=== PATIENT | female | born 1990 | race Caucasian/White ===

== ENCOUNTER 2016-11-24 17:08 | Emergency (ER) | payer OTHER ==
[2016-11-24 17:11] VITALS: BMI 19.8
[2016-11-24 17:17] VITALS: RESP 18
--- NOTE | 2016-11-24 17:37 | ED PDOC ---
Arrival/HPI - General Chief Complaint: Female Genitourinary Time Seen by Provider: 11/24/16 17:12 Historian: Patient - History of Present Illness Narrative History of Present Illness (Text): 11/24/16 17:32 26yr old female presents today with vaginal bleeding and lower abdominal cramping that started About 5 hours prior to arrival. Patient states she is 9 weeks . Patient is . Patient complaining of intermittent lower abdominal cramping/suprapubic cramping. She is complaining of vaginal spotting. Patient states it was initially a brownish discharge now it's a slightly red/ mucousy discharge. She denies urinary symptoms. Denies back pain. Denies fevers or chills. No other complaints Time/Duration: 4-6 hours Symptom Onset: Sudden Symptom Course: Intermittent Quality: Cramping Severity Level: 3 Past Medical History - Provider Review Nursing Documentation Reviewed: Yes - Travel History Have you recently traveled outside [place] w/in the past 3 mons?: No - Infectious Disease Hx of Infectious Diseases: None - Tetanus Immunization Tetanus Immunization: Unknown - Psychiatric Hx Substance Use: No - Anesthesia Hx Anesthesia: No Family/Social History - Physician Review Nursing Documentation Reviewed: Yes Family/Social History: Unknown Family HX Smoking Status: Never Smoked Hx Alcohol Use: No Hx Substance Use: No Allergies/Home Meds Allergies/Adverse Reactions: Allergies No Known Allergies Allergy (Verified 11/24/16 17:11) Home Medications: Home Meds Medication Instructions Recorded Confirmed Ergocalciferol (Vitamin D2) 1 tab PO DAILY 11/24/16 11/24/16 [Vitamin D] Vit No.126/Iron/Folic 1 tab PO DAILY 11/24/16 11/24/16 [Classic Tablet] Review of Systems - Review of Systems Constitutional: absent: Fatigue, Fevers Respiratory: absent: SOB, Cough Cardiovascular: absent: Chest Pain, Palpitations Gastrointestinal: Abdominal Pain. absent: Constipation, Diarrhea, Nausea, Vomiting Genitourinary Female: Vaginal Bleeding. absent: Dysuria, Frequency, Hematuria, Vaginal Discharge Musculoskeletal: absent: Arthralgias, Back Pain, Neck Pain Skin: absent: Rash, Pruritis Neurological: absent: Headache, Dizziness Psychiatric: absent: Anxiety, Depression Physical Exam Vital Signs Reviewed: Yes Vital Signs Temp Pulse Resp BP Pulse Ox 11/24/16 19:58 97.8 F 88 18 112/74 100 11/24/16 17:16 97.9 F 78 18 105/69 98 Temperature: Afebrile Blood Pressure: Normal Pulse: Regular Respiratory Rate: Normal Appearance: Positive for: Well-Appearing, Non-Toxic, Comfortable Pain Distress: None Mental Status: Positive for: Alert and Oriented X 3 - Systems Exam Head: Present: Atraumatic Mouth: Present: Moist Mucous Membranes Respiratory/Chest: Present: Clear to Auscultation Cardiovascular: Present: Regular Rate and Rhythm Abdomen: Present: Normal Bowel Sounds. No: Tenderness, Distention, Peritoneal Signs, Rebound, Guarding Genitourinary/Pelvic Exam: Present: Normal External Genitalia, Vaginal Bleeding (+ minimal bleeding noted), Cervical os Closed, Other (chaparone by george DIAZ). No: Vaginal Discharge, Vaginal Lesions, Adenexal Tenderness, Adenexal Mass, Cervical Motion Tendernes, Odor Upper Extremity: Present: Normal ROM Lower Extremity: Present: Normal ROM Neurological: Present: GCS=15, Speech Normal Skin: Present: Warm, Dry, Normal Color. No: Rashes Psychiatric: Present: Alert, Oriented x 3 Medical Decision Making ED Course and Treatment: 11/24/16 18:17 Patient is nontoxic well appearing in no distress. vital signs are stable. CBC: wnl CMP: wnl Beta hC TYPE AND SCREEN: o+ Urinalysis:+ blood, no WBCS Ultrasound: FINDINGS: Gestation: Transabdominal and transvaginal pelvic ultrasounds were obtained. On the transabdominal scan, the uterus measures 8.6x5.1x5.4 CM. A small gestational sac is noted in the lower uterus. Both ovaries are normal in size, contour and echotexture. There is a 1.6 CM cyst in the left ovary. To better evaluate the gestational sac, a transvaginal scan was performed. There is a intrauterine gestational sac with a mean gestational sac diameter of 2.2 CM corresponding to 6 weeks 5 days. Based on the prior ultrasound, the fetus should be 12 weeks. Based on the previous ultrasound, the fetus should be 9 weeks 4 days. There are 5 adjacent cystic structures within the gestational sac. 3 of them are tiny with thick wall and have the appearance of yolk sacs. They measure about 2 mm. The other 2 are larger with thin wall. They measure about 6 mm. No pole. Echogenic debris within the gestational sac. Placenta/amniotic fluid: Cannot be adequately evaluated due to the early gestational age. Uterus/cervix: The cervical length measures 3.3 CM. Small oval cystic structure in the anterior endocervical lining. No myometrial mass. Ovaries: Both ovaries are normal in size, contour and echotexture. The right ovary measures 3.5x1.8x2.4 CM. The left ovary measures 4.3x2.6x3.9 CM. 1.2x1.3x1.4 CM cyst with incomplete septation. Normal color and Doppler flow. Free fluid: No pelvic free fluid. IMPRESSION: Abnormal intrauterine gestational sac containing 5 cystic structures but no pole. 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 Small 1.4 CM minimally complicated cyst in the left ovary. No pelvic free fluid. Discussed all the results the patient. advised f/u with the men's swim coach within the next 2 days. advised immediate return if symptoms worsen,persist or if new symptoms develop. Impression: Threatened Tylenol every 4 hours as needed for pain Increase fluids Followup with the formula checker within the next 2 days Return immediately if symptoms worsen persist or if new symptoms develop: High fevers, heavy bleeding, severe abdominal pain, vomiting, diarrhea, dizziness or weakness or any other concerning symptoms develop. - Lab Interpretations Lab Results: 11/24/16 17:30 11/24/16 17:30 Lab Results 11/24/16 18:52: Blood Type Confirm O POSITIVE 11/24/16 17:30: WBC 8.7, RBC 4.77, Hgb 14.2, Hct 40.4, MCV 84.7, MCH 29.8, MCHC 35.1, RDW 13.3, Plt Count 265, MPV 10.4, Gran % 58.3, Lymph % (Auto) 34.6, [place] % (Auto) 6.1 H, Eos % (Auto) 0.8 L, Baso % (Auto) 0.2, Gran # 5.06, Lymph # 3.0 , [place] # 0.5, Eos # 0.1, Baso # 0.02 11/24/16 17:30: Blood Type O POSITIVE, Antibody Screen Negative, BBK History Checked No verified bt 11/24/16 17:30: Beta HCG, Quant 12507.00 H 11/24/16 17:30: Sodium 136, Potassium 4.3, Chloride 102, Carbon Dioxide 24, Anion Gap 14, BUN 7, Creatinine 0.6, Est GFR ( Amer) > 60, Est GFR (Non- Af Amer) > 60, Random Glucose 89, Calcium 9.9, Total Bilirubin 0.3, AST 26, ALT 29, Alkaline Phosphatase 65, Total Protein 8.1, Albumin 4.5, Globulin 3.6, Albumin/Globulin Ratio 1.3 11/24/16 17:30: Urine Color Straw, Urine Appearance Clear, Urine pH 6.0, Ur Specific [place] <= 1.005, Urine Protein Negative, Urine Glucose (UA) 100 H, Urine Ketones Negative, Urine Blood Large H, Urine Nitrate Negative, Urine Bilirubin Negative, Urine Urobilinogen 0.2, Ur Leukocyte Esterase Negative, Urine RBC 0 - 2, Urine WBC Negative, Ur Epithelial Cells 0 - 2, Urine Bacteria Trace - RAD Interpretation Radiology Orders: 11/24/16 17:17 OB TRANSVAGINAL [US] Stat Disposition/Present on Arrival - Present on Arrival Any Indicators Present on Arrival: No History of DVT/PE: No History of Uncontrolled Diabetes: No Urinary Catheter: No History of Decub. Ulcer: No History Surgical Site Infection Following: None - Disposition Have Diagnosis and Disposition been Completed?: Yes Diagnosis: Threatened Disposition: HOME/ ROUTINE Disposition Time: 19:52 Patient Plan: Discharge Condition: GOOD Discharge Instructions (ExitCare): Threatened Miscarriage (ED) Additional Instructions: Tylenol every 4 hours as needed for pain Increase fluids Followup with the formula checker within the next 2 days Return immediately if symptoms worsen persist or if new symptoms develop: High fevers, heavy bleeding, severe abdominal pain, vomiting, diarrhea, dizziness or weakness or any other concerning symptoms develop. Referrals: Essie Lora MD [Primary Care Provider] - Follow up with primary Belinda Dupree MD [Medical Doctor] - Follow up with primary Forms: WORK NOTE
[2016-11-24 18:00] LABS: ADD MANUAL DIFF? NO
[2016-11-24 18:04] LABS: BASO # 0.02 K/mm3 (0.0-2.0); BASO % 0.2 % (0.0-3.0); EOS # 0.1 (0.0-0.7); EOS % 0.8 % (1.5-5.0); GRAN # 5.06 (1.4-6.5); GRAN % 58.3 % (50.0-68.0); HEMATOCRIT 40.4 % (36.0-48.0); LYMPH % 34.6 % (22.0-35.0); MEAN CELL VOLUME 84.7 fL (80.0-105.0); MEAN CORPUSCULAR HEMOGLOBIN 29.8 pg (25.0-35.0); MEAN CORPUSCULAR HGB CONC 35.1 g/dl (31.0-37.0); MEAN PLATELET VOLUME 10.4 fl (7.0-11.0); MONO # 0.5 (0.1-0.6); MONO % 6.1 % (1.0-6.0); PLATELET COUNT 265 10^3/uL (120.0-450.0); RED CELL DISTRIBUTION WIDTH 13.3 % (11.5-14.5); URINE BILIRUBIN NEGATIVE (NEGATIVE); URINE BLOOD LARGE (NEGATIVE); URINE GLUCOSE (UA) 100 mg/dL (NEGATIVE); URINE KETONE NEGATIVE (NEGATIVE); URINE LEUKOCYTE ESTERASE NEGATIVE Leu/uL (NEGATIVE); URINE PROTEIN NEGATIVE mg/dL (<30 mg/dL); URINE UROBILINOGEN 0.2 E.U./dL (<1 E.U./dL); WHITE BLOOD COUNT 8.7 10^3/ul (4.5-11.0)
[2016-11-24 18:05] LABS: URINE APPEARANCE CLEAR (CLEAR); URINE COLOR STRAW (YELLOW)
[2016-11-24 18:12] LABS: ALB/GLOB RATIO 1.3 (1.1-1.8); ALKALINE PHOSPHATASE 65 U/L (38-133); ALT/SGPT 29 U/L (7-56); AST/SGOT 26 U/L (15-39); BILIRUBIN,TOTAL 0.3 mg/dL (0.2-1.3); BLOOD UREA NITROGEN 7 mg/dL (7-21); CALCIUM 9.9 mg/dL (8.4-10.5); CARBON DIOXIDE 24 mmol/L (21-33); CHLORIDE 102 mmol/L (98-107); GFR AFRICAN-AMERICAN > 60; GLUCOSE,RANDOM 89 mg/dL (70-110); POTASSIUM 4.3 mmol/L (3.6-5.0); SODIUM 136 mmol/L (132-148); TOTAL PROTEIN 8.1 g/dL (5.8-8.3)
[2016-11-24 19:00] LABS: URINE BACTERIA TRACE (NEG); URINE EPITHELIAL CELLS 0 - 2 /hpf (0-5); URINE RBC 0 - 2 /hpf (0-2); URINE WBC NEGATIVE /hpf (0-6)
[2016-11-24 19:59] VITALS: BP 112/74; PULSE 88; TEMP 97.8; O2SAT 100
--- NOTE | 2016-11-25 12:55 | US ---
Indication: Pain Comparison: OB ultrasound performed 10/31/16 Technique: Ob transvaginal ultrasound Findings: The uterus measures approximately 8.6 x 5.1 x 5.4 cm. Anteverted. Cervix length measures approximately 3.2 cm. Small oval cystic structure within the anterior endocervical lining. Intrauterine gestational sac which appears irregular in contour is identified measuring approximately 2.2 cm consistent with gestational age 6 weeks 5 days. At least 3 cystic foci each measuring approximately 2 mm noted within the gestational sac. Two additional larger thin walled cystic structures are noted within the gestational sac, grossly 6 mm. A pole is not seen. Echogenic debris within the gestational sac. Suspect small subchorionic hemorrhage. The right ovary measures 3.5 x 1.8 x 2.4 cm. The left ovary measures 4.3 x 2.6 x 3.9 cm. Blood flow is demonstrated to both ovaries. 1.4 cm left ovarian follicle/cyst with evidence of septation. Impression: Irregular contour of an intrauterine gestational sac which measures approximately 2.2 cm consistent with gestational age 6 weeks 5 days. At least 3 cystic foci each measuring approximately 2 mm noted within the gestational sac. Two additional larger thin walled cystic structures are noted within the gestational sac, grossly 6 mm. A pole is not seen. Echogenic debris within the gestational sac. Recommend clinical correlation including [employer] consultation and close follow-up as indicated. Suspect small subchorionic hemorrhage. Small oval cystic structure within the anterior endocervical lining. 1.4 cm mildly complicated left ovarian cyst. Preliminary impression was provided by virtual radiologic.
== END 2016-11-24 20:04 | disposition home or self-care (01) ==
LOC: ED 17:08
DX: O20.0 Threatened abortion (principal); Z3A.01 Less than 8 weeks gestation of pregnancy